=== PATIENT | female | born 1995 | race Caucasian/White ===

== ENCOUNTER 2018-08-27 22:16 | Emergency (ER) | payer BC ==
[~2018-08-27] VITALS: Ht 157.5 cm; Wt 97.1 kg
[~2018-08-27 22:16] MED LIST: LO LOESTRIN FE1 EACH PO; METFORMIN HCL500 MG PO; PRAZOSIN HCL2 MG PO; TRAZODONE HCL50 MG PO; WELLBUTRIN SR200 MG PO
--- OUTSIDE RECORDS SUMMARY | 2018-08-27 22:26 | XMS REPORT ---
Author Author [facility] Address Unknown Phone Unavailable Care Team Providers Care Patient Registrar Name Role Phone Stuart GONZALEZ Unavailable Unavailable Problems This patient has no known problems. Allergies, Adverse Reactions, Alerts This patient has no known allergies or adverse reactions. Medications This patient has no known medications. Results Test Description Test Time Test Comments Text Results Atomic Results Result Comments CT ABDOMEN/PELVIS W [facility] [address] [address] Patient Name: JENARO SALVADOR MR #: [id number] : 1995 Age/Sex: 21/F Req #: [id number] Adm Physician: Ordered by: ELKE NOYOLA PYROGLAZER Report #: [id number] Location: ER Room/Bed: Procedure: [id number] CT/CT ABDOMEN/PELVIS W Exam Date: Exam Time: REPORT STATUS: Signed CT scan abdomen and pelvis. October 26, 2016 Clinical history: Right-sided abdominal pain. Clinical concern for appendicitis. Technique: Routine protocol CT abdomen and pelvis performed after 100 mL Isovue-370 intravenous contrast. No enteric contrast was administered. Coronal, sagittal and axial images generated from source data. Dose: 750.29 mGy-cm Comparison: None Findings: Clear lung bases. No pleural effusions. Normal heart size. Liver: Diffuse low-attenuation. Right lobe midclavicular craniocaudal span 18.7 cm. Gallbladder: Cholecystectomy. No bile duct dilation. Pancreas: Normal Spleen: 13.5 cm span. Adrenal glands: Normal Kidneys: Normal Urinary bladder: Decompressed Uterus and adnexa: 7 x 3 cm tubular structure in the right adnexa with central low attenuation. Otherwise, normal. Bowel: Normal caliber. Normal appendix (image 44, series 301, image 58, series 2). Peritoneum: Normal Vasculature: Normal caliber. Lymph nodes: Normal Skeleton: Intact; normal. Soft tissues: Normal Impression: 1. 7 x 3 cm tubular structure in the right adnexa, possibly hydrosalpinx. 2. Normal appendix. 3. Hepatomegaly with steatosis. This report was generated with voice-recognition technology. Errors in art instructor can occur. Please interpret accordingly and contact a radiologist if there are any questions regarding the report. Signed by: Dr. Kusum Vu M.D. on 10/26/2016 8:10 PM Dictated By: KUSUM VU MD 09 Transcribed By: LYNNETTE on 10/26/162009 COPY TO: ELKE NOYOLA PYROGLAZER US PELVIS COMPLETE NON OB [place] [address] Patient Name: JENARO SALVADOR MR #: [id number] : 1995 Age/Sex: 21/F Req #: [id number] Adm Physician: Ordered by: ELKE NOYOLA PYROGLAZER Report #: [id number] Location: ER Room/Bed: Procedure: [id number] US/US PELVIS COMPLETE NON OB Exam Date: 10/26/16 Exam Time: 2103 REPORT STATUS: Signed ADDENDUM #1 The ultrasound was compared to prior CT of the abdomen and pelvis October 26, 2016. There is no evidence of right hydrosalpinx by ultrasound. By ultrasound, the right ovary is oval/tubular in appearance, which may account for CT finding. Normal sonographic appearance of the ovaries. No adnexal masses identified. Signed by: Dr. Henrietta Henley M.D. on 10/26/2016 10:17 PM ORIGINAL REPORT EXAM: Transabdominal and Transvaginal Pelvic Ultrasound with Duplex INDICATION: Right lower quadrant pain for 3 weeks COMPARISON: None TECHNIQUE: Grayscale transverse and sagittal transabdominal and transvaginal images were obtained of the pelvis. The ovaries were examined with grayscale, color Doppler, and spectral waveform analysis. Carty svaginal imaging was medically necessary to better evaluate the endometrium. CLINICAL HISTORY: A0; last menstrual period: September 12, 2016. FINDINGS: Uterus Orientation: Anteverted Size: 6.5 x 3.2 x 4.3 cm, normal Mass: None Cervix: Normal Endometrium: Thickness: 0.4 cm, Normal. Appearance: Homogeneous echotexture without focal thickening. Right ovary: Size: 4.3 x 2.2 x 2.1 cm Mass/Cyst: None Vascularity: Normal venous and arterial color flow and waveforms. Left ovary: Size: 4.4 x 2.5 x 2.7 cm Mass/Cyst: None Vascularity: Normal venous and arterial color flow and waveforms. Adnexa: Normal Cul-de-sac: Small amount of free fluid. IMPRESSION: 1. No sonographic evidence of ovarian torsion. 2. Unremarkable transabdominal and transvaginal pelvic ultrasound exam. Signed by: Dr. Henrietta Henley M.D. on 10/26/2016 9:52 PM Dictated By: HENRIETTA HENLEY MD Transcribed By: LYNNETTE on 10/26/162151 COPY TO: ELKE NOYOLA NP PELVIC DOPPLER LTD [place] [address] Patient Name: JENARO SALVADOR MR #: [id number] : 1995 Age/Sex: 21/F Req #: [id number] [facility] Physician: Ordered by: ELKE NOYOLA NP Report #: [id number] Location: ER Room/Bed: Procedure: [id number] US/US PELVIC DOPPLER LTD Exam Date: 10/26/16 Exam Time: 2103 REPORT STATUS: Signed ADDENDUM #1 The ultrasound was compared to prior CT of the abdomen and pelvis October 26, 2016. There is no evidence of right hydrosalpinx by ultrasound. By ultrasound, the right ovary is oval/tubular in appearance, which may account for CT finding. Normal sonographic appearance of the ovaries. No adnexal masses identified. Signed by: Dr. Henrietta Henley M.D. on 10/26/2016 10:17 PM ORIGINAL REPORT EXAM: Transabdominal and Transvaginal Pelvic Ultrasound with Duplex INDICATION: Right lower quadrant pain for 3 weeks COMPARISON: None TECHNIQUE: Grayscale transverse and sagittal transabdominal and transvaginal images were obtained of the pelvis. The ovaries were examined with grayscale, color Doppler, and spectral waveform analysis. Transvaginal imaging was medically necessary to better evaluate the endometrium. CLINICAL HISTORY: A0; last menstrual period: September 12, 2016. FINDINGS: Uterus Orientation: Anteverted Size: 6.5 x 3.2 x 4.3 cm, normal Mass: None Cervix: Normal Endometrium: Thickness: 0.4 cm, Normal. Appearance: Homogeneous echotexture without focal thickening. Right ovary: Size: 4.3 x 2.2 x 2.1 cm Mass/Cyst: None Vascularity: Normal venous and arterial color flow and waveforms. Left ovary: Size: 4.4 x 2.5 x 2.7 cm Mass/Cyst: None Vascularity: Normal venou s and arterial color flow and waveforms. Adnexa: Normal Cul-de-sac: Small amount of free fluid. IMPRESSION: 1. No sonographic evidence of ovarian torsion. 2. Unremarkable transabdominal and transvaginal pelvic ultrasound exam. Signed by: Dr. Henrietta Henley M.D. on 10/26/2016 9:52 PM Dictated By: HENRIETTA HENLEY MD 16 Transcribed By: LYNNETTE on 10/26/162151 COPY TO: ELKE NOYOLA PYROGLAZER US TRANSVAGINAL [place] [address] Patient Name: JENARO SALVADOR MR #: [id number] : 1995 Age/Sex: 21/F Req #: [id number] Adm Physician: Ordered by: ELKE NOYOLA PYROGLAZER Report #: [id number] Location: ER Room/Bed: Procedure: [id number] US/US TRANSVAGINAL Exam Date: 10/26/16 Exam Time: 2103 REPORT STATUS: Signed ADDENDUM #1 The ultrasound was compared to prior CT of the abdomen and pelvis October 26, 2016. There is no evidence of right hydrosalpinx by ultrasound. By ultrasound, the right ovary is oval/tubular in appearance, which may account for CT finding. Normal sonographic appearance of the ovaries. No adnexal masses identified. Signed by: Dr. Henrietta Henley M.D. on 10/26/2016 10:17 PM ORIGINAL REPORT EXAM: Transabdominal and Transvaginal Pelvic Ultrasound with Duplex INDICATION: Right lower quadrant pain for 3 weeks COMPARISON: None TECHNIQUE: Grayscale transverse and sagittal transabdominal and transvaginal images were obtained of the pelvis. The ovaries were examined with grayscale, color Doppler, and spectral waveform analysis. Transvaginal imaging was medically necessary to better evaluate the endometrium. CLINICAL HISTORY: A0; last menstrual period: September 12, 2016. FINDINGS: Uterus Orientation: Anteverted Size: 6.5 x 3.2 x 4.3 cm, normal Mass: None Cervix: Normal Endometrium: Thickness: 0.4 cm, Normal. Appearance: Homogeneous echotexture without focal thickening. Right ovary: Size: 4.3 x 2.2 x 2.1 cm Mass/Cyst: None Vascularity: Normal venous and arterial color flow and waveforms. Left ovary: Size: 4.4 x 2.5 x 2.7 cm Mass/Cyst: None Vascularity: Normal venous and arterial color flow and waveforms. Adnexa: Normal Cul-de-sac: Small amount of free fluid. IMPRESSION: 1. No sonographic evidence of ovarian torsion. 2. Unremarkable transabdominal and transvaginal pelvic ultrasound exam. Signed by: Dr. Henrietta Henley M.D. on 10/26/2016 9:52 PM Dictated By: HENRIETTA HENLEY MD [id number] Transcribed By: LYNNETTE on 10/26/16 7442 COPY TO: ELEK NOYOLA NP
[2018-08-27] MEDS ORDERED: SODIUM CHLORIDE 0.9% 1000ML 1,000 ML IV STA (23:02)
[2018-08-27] MEDS ORDERED: ONDANSETRON HCL INJ 2MG/ML 2ML 2 MG/ML VIAL IV ONE (23:15)
[2018-08-27] MEDS ORDERED: KETOROLAC TROMETHAMINE 30 MG/ML VIAL IV ONE (23:15)
[2018-08-27] MEDS ORDERED: FAMOTIDINE 20 MG/2 ML VIAL IV ONE ×2 (23:15→23:30)
[2018-08-27] MEDS ORDERED: KETOROLAC TROMETHAMINE 30 MG/ML VIAL ONE (23:29)
[2018-08-27] MEDS ORDERED: SODIUM CHLORIDE 0.9% 1000ML 1,000 ML ONE (23:29)
[2018-08-27] MEDS ORDERED: ONDANSETRON HCL INJ 2MG/ML 2ML 2 MG/ML VIAL ONE (23:29)
[2018-08-28 02:21] VITALS: BP 111/68
== END 2018-08-28 00:43 | disposition home or self-care (01) ==
LOC: FSED 22:16
DX: K52.9 Noninfective gastroenteritis and colitis, unspecified (principal); K73.9 Chronic hepatitis, unspecified; E11.9 Type 2 diabetes mellitus without complications; E86.0 Dehydration; Z79.84 Long term (current) use of oral hypoglycemic drugs
CPT/HCPCS: 80053; 82948; 85025; 99283; J1885; J2405; J7030